=== PATIENT | male | born 1980 | race Two or more races ===

== ENCOUNTER 2022-05-30 12:53 | Emergency (ER) | payer MEDICAID ==
[~2022-05-30] VITALS: Ht 175.3 cm; Wt 86.2 kg
[2022-05-30 13:15] VITALS: BP 130/84
[2022-05-30] MEDS ORDERED: LORA-258 PO (13:27)
[2022-05-30] MEDS ORDERED: LORAZEPAM 1 MG TABLET PO ONE (13:30)
[2022-05-30] MEDS ORDERED: LORAZEPAM 1 MG TABLET ONE (13:34)
== END 2022-05-30 14:05 | disposition home or self-care (01) ==
LOC: ER 13:00
DX: F41.9 Anxiety disorder, unspecified (principal); Z60.2 Problems related to living alone